=== PATIENT | male | born 1995 | race Caucasian/White ===

== ENCOUNTER 2024-12-16 20:12 | Emergency (ER) | payer SELFPAY ==
[2024-12-16 20:25] VITALS: BP 139/93; PULSE 100; RESP 20; TEMP 37.1; O2SAT 98; BMI 38.3
[2024-12-16 20:33] LABS: Appearance Urine UA CLEAR; Bilirubin Urine UA NEGATIVE (NEGATIVE); Color Urine UA YELLOW; Glucose Urine UA NEGATIVE (Negative); Ketones Urine UA NEGATIVE (NEGATIVE); Leukocyte Esterase Urine UA NEGATIVE (NEGATIVE); Nitrite Urine UA NEGATIVE (Negative); Occult Blood Urine UA TRACE-INTACT (Negative); Protein Urine UA NEGATIVE (Negative); Specific Gravity Urine UA 1.020 (1.000-1.035); Urobilinogen Urine UA 0.2 E.U./dL (0.2); pH Urine UA 5.5 (4.5-8.0)
[2024-12-16 20:36] LABS: Ur Creatinine Normal (Normal); Ur Specific Gravity Normal (Normal); Urine MDMA Negative (Negative); Urine Methamphetamines Negative (Negative); Urine THC Negative (Negative); Urine Tricyclic Antidepressant Negative (Negative); Urine pH Normal (Normal)
[2024-12-16 20:38] LABS: Culture Indicated Urine Cult Not Indicated
[2024-12-16 22:14] LABS: Add Manual Diff / Slide Review NO; Hematocrit 46.8 % (41-53); Hemoglobin 15.9 g/dL (13.5-17.5); Lymphocytes Absolute Auto 4000 /uL (1100-4500); Mean Corpuscular HGB Conc 34.1 % (30-36); Mean Corpuscular Hemoglobin 28.0 PG (26-34); Mean Corpuscular Volume 82.2 fL (80-100); Platelet Count 311 X10^3/uL (150-400)
[2024-12-16 22:21] LABS: Acetaminophen < 10 ug/mL (10-30); Alanine Aminotransferase 53 IU/L (<50); Albumin 4.7 g/dL (3.5-5.0); Albumin Globulin Ratio 1.4 (1.0-2.8); Alkaline Phosphatase 91 U/L (38-126); Blood Urea Nitrogen 8 mg/dL (9-20); Calcium 8.9 mg/dL (8.4-10.2); Carbon Dioxide 23 mmol/L (22-32); Chloride 106 mmol/L (98-107); Estimated Glomerular Filt Rate > 60 mL/min (>60); Ethanol (ETOH) 190 mg/dL (<10); Globulin 3.4 g/dL (1.7-4.1); Glucose 109 mg/dL (70-99); HEMOLYSIS 20 (0-50); Potassium 3.8 mmol/L (3.4-5.1); Salicylate < 1.0 mg/dL (<20); Sodium 143 mmol/L (137-145); Total Protein 8.1 g/dL (6.3-8.2)
[2024-12-16] MEDS: NICOTINE 21 MG PATCH TOP (22:47)
[2024-12-16 22:57] LABS: TSH w/ Reflex to FT4 2.40 uIU/mL (0.47-4.68)
--- NOTE | 2024-12-16 23:53 | ED.PSYCH ---
HPI - Psych General Chief Complaint: Psychiatric Symptoms Stated Complaint: SI Time Seen by Provider: 12/16/24 21:21 Source: patient Mode of arrival: other History of Present Illness HPI Narrative: 29-year-old male had been drinking alcohol, apparently felt depressed, concerned friend called 911, escort to here for evaluation. He denies thoughts of hurting himself or others. He has been in phone discussion with his , he would like to go home with his . He is feels stressed about financial matters. Denies thoughts of hurting himself or others. Related Data Allergies Allergy/AdvReac Type Severity Reaction Status Date / Time No Known Drug Allergies Allergy Verified 12/16/24 20:57 Patient History Social History Smoking Status: Current every day smoker Smoking Status: Current every day smoker tobacco type: cigarettes Alcohol type: hard liquor Exam Narrative Exam Narrative: GENERAL: Well-developed patient, in mild distress. HEAD: Atraumatic. Normocephalic. EYES: Pupils equal round and reactive. Extraocular motions intact. No scleral icterus. No injection or drainage. ENT: Nose without bleeding, purulent drainage. Throat without erythema, tonsillar hypertrophy or exudate. Airway patent. NECK: Trachea midline. Non tender CARDIOVASCULAR: Regular rate and rhythm without murmurs, gallops, or rubs. RESPIRATORY: Clear to auscultation. Breath sounds equal bilaterally. No wheezes, rales, or rhonchi. GASTROINTESTINAL: Abdomen soft, non-tender, nondistended. EXTREMITIES: No edema or joint tenderness. BACK: Nontender without deformity or crepitance. No flank tenderness. NEURO: AOx3. Motor functions grossly nonfocal. SKIN: No rash or erythema of visible areas Initial Vital Signs Initial Vital Signs: Vital Signs Temperature 98.7 F 12/16/24 20:25 Pulse Rate 100 H 12/16/24 20:25 Respiratory Rate 20 12/16/24 20:25 Blood Pressure 139/93 H 12/16/24 20:25 Pulse Oximetry 98 12/16/24 20:25 Oxygen Delivery Method Room Air 12/16/24 20:25 Course Orders Ordered: Discontinued Medications Nicotine (Nicotine 21 Mg Patch) 21 mg TOP NOW ONE Stop: 12/16/24 22:43 Last Admin: 12/16/24 22:47 Dose: 21 mg Documented By: Vital Signs Vital signs: Vital Signs - 8 hr 12/16/24 20:25 Temperature 98.7 F Pulse Rate 100 H Respiratory Rate 20 Blood Pressure 139/93 H Pulse Oximetry 98 Oxygen Delivery Method Room Air MDM - Psych Lab Data 12/16/24 22:00 12/16/24 22:00 Labs: Lab Results 12/16/24 12/16/24 12/16/24 Range/Units 20:24 20:24 22:00 WBC 12.9 H (4.5-11.0) X10^3/uL RBC 5.69 (4.5-5.9) X10^6/uL Hgb 15.9 (13.5-17.5) g/dL Hct 46.8 (41-53) % MCV 82.2 (80-100) fL MCH 28.0 (26-34) PG MCHC 34.1 (30-36) % RDW 14.0 (11.6-14.8) % Plt Count 311 (150-400) X10^3/uL Neut % (Auto) 58.5 (50-75) % Lymph % (Auto) 31.0 (25-40) % Mathews % (Auto) 5.6 (3-14) % Eos % (Auto) 3.8 (2-4) % Baso % (Auto) 1.1 (0-2) % Neut # (Auto) 7600 H (1475-5706) /uL Lymph # (Auto) 4000 (0980-1617) /uL Mathews # (Auto) 700 (0-900) /uL Eos # (Auto) 500 H (0-450) /uL Baso # (Auto) 100 (0-100) /uL Sodium 143 (137-145) mmol/L Potassium 3.8 (3.4-5.1) mmol/L Chloride 106 (98-107) mmol/L Carbon Dioxide 23 (22-32) mmol/L BUN 8 L (9-20) mg/dL Creatinine 0.65 L (0.66-1.25) mg/dL Estimated GFR > 60 (>60) mL/min BUN/Creatinine Ratio 12.3 (6-22) Glucose 109 H (70-99) mg/dL Calcium 8.9 (8.4-10.2) mg/dL Total Bilirubin 0.4 (0.2-1.3) mg/dL AST 57 (17-59) IU/L ALT 53 H (<50) IU/L Alkaline Phosphatase 91 (38-126) U/L Total Protein 8.1 (6.3-8.2) g/dL Albumin 4.7 (3.5-5.0) g/dL Globulin 3.4 (1.7-4.1) g/dL Albumin/Globulin Ratio 1.4 (1.0-2.8) TSH 2.40 (0.47-4.68) uIU/mL Urine Color Yellow Urine Appearance Clear Urine pH 5.5 Normal (4.5-8.0) Ur Specific [place] 1.020 (1.000-1.035) Urine Protein Negative (Negative) Urine Glucose (UA) Negative (Negative) g/dL Urine Ketones Negative (NEGATIVE) Urine Occult Blood Trace-intact (Negative) Urine Nitrate Negative (Negative) Urine Bilirubin Negative (NEGATIVE) Urine Urobilinogen 0.2 (0.2) E.U./dL Ur Leukocyte Esterase Negative (NEGATIVE) Urine RBC 0-1/hpf (0-5/HPF) Urine WBC 0-1/hpf (0-5/HPF) Ur Squamous Epith Cells 0-1 /hpf (0-5/HPF) Urine Bacteria Occasional (0-1) (None) Urine Mucus 1+ H (Negative) Ur Culture Indicated? Cult not indicated Vol Urine Centrifuged 10ml (spun) Salicylates < 1.0 (<20) mg/dL U Opiates 300ng/mL cut Negative (Negative) Ur Oxycodone Screen Negative (Negative) Urine Methadone Screen Negative (Negative) Acetaminophen < 10 (10-30) ug/mL Ur Barbiturates Screen Negative (Negative) U Tricyclic Antidepress Negative (Negative) Ur Phencyclidine Scrn Negative (Negative) Ur Amphetamines Screen Negative (Negative) U Methamphetamines Scrn Negative (Negative) Ur MDMA Scrn (Ecstasy) Negative (Negative) U Benzodiazepines Scrn Negative (Negative) Urine Cocaine Screen Positive H (Negative) U Marijuana (THC) Screen Negative (Negative) Urine Specific [place] Normal (Normal) Ethyl Alcohol 190 H (<10) mg/dL Ur Creatinine Normal (Normal) MDM Narrative Medical decision making narrative: 29yo with recent financial stressors, eval by PD/EMS after concerned friend called 911, patient had been drinking, expressed thoughts of hurting self, no specific plan, symptoms not present now. Screening labs show BAL 190. Conversant, denies SI/HI. Observed in ED. No s/sx withdrawal. Denied SI. Home to via Uber transport. FU with PCP advised. Return precautons discussed. Discharge Plan Departure Patient Disposition: Home Clinical Impression: Depression, Alcohol abuse Activity Restrictions/Additional Instructions: You had depression symptoms, report financial stressors, concerned friend apparently called 911 his air worried about you, however you are denying any thoughts of hurting herself or others. Labs showed blood alcohol level 190 about 10:00 p.m.. He had been in consultation with your , he would like to go home. You had a sober transportation mechanism to be directly driven home with your who can further observe you. Consider alcohol sensation. Consider counseling for depression. Crisis number can call #[phone] at any time if you feel like you need psychosocial help. Discharged home with family. Stand Alone Forms: Patient Portal/API
[2024-12-17 00:16] VITALS: BP 163/97; PULSE 78; RESP 17; O2SAT 99
== END 2024-12-17 00:18 | disposition home or self-care (01) ==
PROVIDERS: Emergency Provider Emergency Medicine
DX: F32.A Depression, unspecified (principal); F10.10 Alcohol abuse, uncomplicated; Y90.6 Blood alcohol level of 120-199 mg/100 ml; F17.200 Nicotine dependence, unspecified, uncomplicated
CPT/HCPCS: 36415; 80053; 80305; 80320; 80329; 81001; 84443; 85025; 99283; 99284; G0480